=== PATIENT | male | born 1940 | race Caucasian/White ===

== ENCOUNTER 2018-09-04 21:02 | Emergency (ER) | payer OTHER ==
[~2018-09-04] VITALS: Ht 170.2 cm; Wt 108.9 kg
[2018-09-04] MEDS ORDERED: ALLOPURINOL100 MG PO (21:21)
[2018-09-04] MEDS ORDERED: HUMULIN R100 UNIT/1 INJ (21:21)
[2018-09-04] MEDS ORDERED: LANTUS100 UNITS/ SUB-Q (21:21)
[2018-09-04] MEDS ORDERED: NORVASC5 MG PO (21:22)
[2018-09-04] MEDS ORDERED: ZESTRIL5 MG PO (21:23)
[2018-09-04] MEDS ORDERED: COREG6.25 MG PO (21:23)
[2018-09-04] MEDS ORDERED: HYDROCHLOROTHIA25 MG PO (21:23)
[2018-09-04] MEDS ORDERED: LIPITOR20 MG PO (21:23)
[2018-09-04] MEDS ORDERED: K-TAB ER20 MEQ (21:24)
[2018-09-04] MEDS ORDERED: OMEPRAZOLE20 MG PO (21:24)
[2018-09-04] MEDS ORDERED: PC TAR177 ML TP (21:25)
[2018-09-04] MEDS ORDERED: LEVAQUIN500 MG PO (23:21)
--- NOTE | 2018-09-05 17:03 | EKG ---
[facility] [address] [facility] [place], [place] [address] Signed Normal sinus rhythm Right bundle branch block Abnormal ECG No previous ECGs available Confirmed by STEFANO BRITO DO ([id number]) on 09/05/2018 5:02:57 PM Electronically Signed By: STEFANO BRITO DO 09/05/18 1703 PATIENT NAME: LAVELL MEDINA Electrocardiogram DATE OF : 40 PHYSICIAN: STEFANO BRITO DO REPORT #: [id number] REPORT IS CONFIDENTIAL AND NOT TO BE RELEASED WITHOUT AUTHORIZATION
== END 2018-09-04 23:44 | disposition home or self-care (01) ==
LOC: ED 21:02
DX: J18.1 Lobar pneumonia, unspecified organism (principal); I10 Essential (primary) hypertension; E11.9 Type 2 diabetes mellitus without complications; E11.40 Type 2 diabetes mellitus with diabetic neuropathy, unspecified; K21.9 Gastro-esophageal reflux disease without esophagitis; Z87.891 Personal history of nicotine dependence; Z90.89 Acquired absence of other organs; Z88.0 Allergy status to penicillin; Z88.2 Allergy status to sulfonamides; Z79.4 Long term (current) use of insulin; Z79.899 Other long term (current) drug therapy
CPT/HCPCS: 36415; 71046; 80053; 83605; 85025; 93005; 93010; 99284-25

== ENCOUNTER 2022-05-28 09:51 | Emergency (ER) | payer OTHER ==
[~2022-05-28] VITALS: Ht 170.2 cm; Wt 108.1 kg
[~2022-05-28 09:51] MED LIST: ALLOPURINOL100 MG PO; COREG6.25 MG PO; HUMULIN R100 UNIT/1 INJ; HYDROCHLOROTHIA25 MG PO; K-TAB ER20 MEQ; LANTUS100 UNITS/ SUB-Q; LEVAQUIN500 MG PO; LIPITOR20 MG PO; NORVASC5 MG PO; OMEPRAZOLE20 MG PO; PC TAR177 ML TP; ZESTRIL5 MG PO
[2022-05-28] MEDS ORDERED: VENTOLIN HFA18 GM INH (11:08)
--- NOTE | 2022-05-30 06:52 | EKG ---
[facility] [address] [facility] [place] [address] Signed Sinus rhythm with occasional premature ventricular complexes Right bundle branch block T wave abnormality, consider inferior ischemia Abnormal ECG When compared with ECG of 04-SEP-2018 22:15, premature ventricular complexes are now present Confirmed by ANJANA MCMULLEN MD ([id number]) on 05/30/2022 6:52:31 AM Electronically Signed By: ANJANA MCMULLEN MD 05/30/22 0652 PATIENT NAME: LAVELL MEDINA Electrocardiogram DATE OF : 40 PHYSICIAN: ANJANA MCMULLEN MD REPORT #: [id number] REPORT IS CONFIDENTIAL AND NOT TO BE RELEASED WITHOUT AUTHORIZATION
== END 2022-05-28 12:15 | disposition home or self-care (01) ==
LOC: ED 09:51
DX: J10.1 Influenza due to other identified influenza virus with other respiratory manifestations (principal); R31.9 Hematuria, unspecified; I10 Essential (primary) hypertension; E11.42 Type 2 diabetes mellitus with diabetic polyneuropathy; M10.9 Gout, unspecified; K21.9 Gastro-esophageal reflux disease without esophagitis; Z87.891 Personal history of nicotine dependence; Z88.0 Allergy status to penicillin; Z88.2 Allergy status to sulfonamides; Z79.4 Long term (current) use of insulin; Z79.899 Other long term (current) drug therapy
CPT/HCPCS: 36415; 71045; 80053; 81001; 83605; 85025; 87040; 93005; 93010; 94640; 99285-25; J7030

== ENCOUNTER 2023-01-11 12:56 | Emergency (ER) | payer OTHER ==
[~2023-01-11] VITALS: Ht 170.2 cm; Wt 104.3 kg
--- OUTSIDE RECORDS SUMMARY | ~2023-01-11 | XMS | Continuity of Care Document ---
Demographics + + + | Address | [address] [place] [address] | | | [place] [address] | + + + | Preferred Language | Unknown | + + + | Marital Status | Never | + + + | Orthodox Affiliation | Unknown | + + + | Race | White | + + + | Ethnic Group | Unknown | + + + Author + + + | Author | [facility] | + + + | Organization | [facility] | + + + | Address | [address] | | | [place] [address] | + + + | Phone | | + + + Care Team Providers + + + + | Care Reservoir Engineering Manager Name | Role | Phone | + + + + Unavailable | Unavailable | + + + + Allergies and Intolerances + + + + + + | date | description | facility | reaction | severity | + + + + + + | (no date) | Penicillins | [facility] | (no reaction) | (no severity) | + + + + + + | (no date) | Sulfa | [facility] | (no reaction) | (no severity) | | | (Sulfonamide | | | | | | Antibiotics) | | | | + + + + + + Encounters No information. Functional Status No information. Immunizations No information. Medications No information. Problems + + + + | date | description | facility | + + + + | 2022-05-28 09:51 | TYPE 2 DIABETES MELLITUS | [facility] | | | WITH DIABETIC POLYNEUROPA | | + + + + | 2022-05-28 09:51 | Essential (primary) | [facility] | | | hypertension | | + + + + | 2022-05-28 09:51 | FLU DUE TO OTH IDENT | [facility] | | | INFLUENZA VIRUS W OTH RESP | | | | MA | | + + + + | 2022-05-28 09:51 | GASTRO-ESOPHAGEAL REFLUX | [facility] | | | DISEASE WITHOUT ESOPHAGIT | | + + + + | 2022-05-28 09:51 | GOUT, UNSPECIFIED | [facility] | + + + + | 2022-05-28 09:51 | HEMATURIA, UNSPECIFIED | [facility] | + + + + | 2022-05-28 09:51 | Dizziness and giddiness | [facility] | + + + + | 2022-05-28 09:51 | WOOD ROUTER HAND (CURRENT) USE OF | [facility] | | | INSULIN | | + + + + | 2022-05-28 09:51 | OTHER CORRECTION (CURRENT) | [facility] | | | DRUG THERAPY | | + + + + | 2022-05-28 09:51 | PERSONAL HISTORY OF | [facility] | | | NICOTINE DEPENDENCE | | + + + + | 2022-05-28 09:51 | ALLERGY STATUS TO | [facility] | | | PENICILLIN | | + + + + | 2022-05-28 09:51 | ALLERGY STATUS TO | [facility] | | | SULFONAMIDES STATUS | | + + + + | 2022-06-17 07:45 | 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, LEFT B | | + + + + | 2022-06-17 07:45 | SECONDARY MALIGNANT | [facility] | | | NEOPLASM OF UNSPECIFIED | | | | SITE | | + + + + | 2022-06-17 07:45 | PULMONARY FIBROSIS, | [facility] | | | UNSPECIFIED | | + + + + | 2022-06-17 07:45 | FATTY (CHANGE OF) LIVER, | [facility] | | | NOT ELSEWHERE CLASSIFIED | | + + + + | 2022-06-17 07:45 | SPLENOMEGALY, NOT | [facility] | | | ELSEWHERE CLASSIFIED | | + + + + | 2022-09-01 09:30 | Malignant neoplasm of | [facility] | | | prostate | | + + + + | 2022-09-01 09:30 | SECONDARY MALIGNANT | [facility] | | | NEOPLASM OF UNSPECIF | | + + + + | 2022-12-14 12:50 | 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, LEFT BRONCHUS | | | | OR LUNG | | + + + + | 2022-12-14 12:50 | SECONDARY MALIGNANT | [facility] | | | NEOPLASM OF UNSPECIF | | + + + + | 2022-12-14 12:50 | FATTY (CHANGE OF) LIVER, | [facility] | | | NOT ELSEWHERE CLASSIFIED | | + + + + | 2022-12-14 12:50 | 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, NOT ELSEWHERE | | | | CLAS | | + + + + | 2022-12-14 13:00 | SECONDARY MALIGNANT | [facility] | | | NEOPLASM OF UNSPECIF | | + + + + | 2023-01-07 12:56 | TYPE 2 DIABETES MELLITUS | [facility] | | | WITH DIABETIC POLYNEUROPA | | + + + + | 2023-01-07 12:56 | Essential (primary) | [facility] | | | hypertension | | + + + + | 2023-01-07 12:56 | GASTRO-ESOPHAGEAL REFLUX | [facility] | | | DISEASE WITHOUT ESOPHAGIT | | + + + + | 2023-01-07 12:56 | UNSPECIFIED ABDOMINAL PAIN | [facility] | | | | | + + + + | 2023-01-07 12:56 | HEMATURIA, UNSPECIFIED | [facility] | + + + + | 2023-01-07 12:56 | RETENTION OF URINE, | [facility] | | | UNSPECIFIED | | + + + + | 2023-01-07 12:56 | WOOD ROUTER HAND (CURRENT) USE OF | [facility] | | | INSULIN | | + + + + | 2023-01-07 12:56 | OTHER WOOD ROUTER HAND (CURRENT) | [facility] | | | DRUG THERAPY | | + + + + | 2023-01-07 12:56 | PERSONAL HISTORY OF | [facility] | | | NICOTINE DEPENDENCE | | + + + + | 2023-01-07 12:56 | ALLERGY STATUS TO | [facility] | | | PENICILLIN | | + + + + | 2023-01-07 12:56 | ALLERGY STATUS TO | [facility] | | | SULFONAMIDES STATUS | | + + + + Procedures No information. Results/Labs No information. Social History No information. Vital Signs No information."
--- OUTSIDE RECORDS SUMMARY | ~2023-01-11 | XMS | Continuity of Care Document ---
Demographics + + + | Address | [address] [place] [address] | | | [place] [address] | + + + | Preferred Language | Unknown | + + + | Marital Status | Never | + + + | Adventism Affiliation | Unknown | + + + | Race | White | + + + | Ethnic Group | Unknown | + + + Author + + + | Author | [facility] | + + + | Organization | [facility] | + + + | Address | [address] | | | [place] [address] | + + + | Phone | | + + + Care Team Providers + + + + | Care Outsole Flexer Name | Role | Phone | + [...] + + + | 2022-05-28 09:51 | CONVEYOR TENDER CONCRETE MIXING PLANT (CURRENT) USE OF | [facility] | | | INSULIN | | + + + + | 2022-05-28 09:51 | OTHER PRISON (CURRENT) | [facility] | | | DRUG [...] + + + | 2023-01-07 12:56 | CONVEYOR TENDER CONCRETE MIXING PLANT (CURRENT) USE OF | [facility] | | | INSULIN | | + + + + | 2023-01-07 12:56 | OTHER CONVEYOR TENDER CONCRETE MIXING PLANT (CURRENT) | [facility] | | | DRUG [...]
[~2023-01-11 12:56] MED LIST changes: -HUMULIN R100 UNIT/1 INJ; -K-TAB ER20 MEQ; -LIPITOR20 MG PO; +LIPITOR40 MG PO; +NOVOLIN R100 UNIT/1 INJ; +POTASSIUM CITR10 ME1 PO; +PROSCAR5 MG PO; +VENTOLIN HFA18 GM INH; +ZESTRIL20 MG PO; -ZESTRIL5 MG PO
--- OUTSIDE RECORDS SUMMARY | 2023-01-11 13:02 | XMS ---
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 Carlotta has no Care Guidelines for this patient. Justin VISIT COUNT (12 MO.) [address] [facility] TOTAL 5 NOTE: Visits indicate total known visits. ED/C VISIT TRACKING (12 MO.) 01/11/2023 12:57 [facility] [place] TYPE: Emergency COMPLAINT: - BLOOD IN CATHETER 01/10/2023 15:15 [facility] [place] TYPE: Emergency COMPLAINT: - WEAKNESS 01/09/2023 13:33 [facility] [place] TYPE: Emergency COMPLAINT: - URIN IN BLOOD 01/07/2023 12:56 [facility] [place] TYPE: Emergency COMPLAINT: - POSS UTI DIAGNOSES: - Allergy status to penicillin - Allergy status to sulfonamides - Essential (primary) hypertension - Gastro-esophageal reflux disease without esophagitis - Hematuria, unspecified - intermediate (current) use of insulin - Other termite control service representative (current) drug therapy - Personal history of nicotine dependence - Retention of urine, unspecified - Type 2 diabetes mellitus with diabetic polyneuropathy - Unspecified abdominal pain 05/28/2022 09:51 [facility] [place] TYPE: Emergency COMPLAINT: - SOB DIAGNOSES: - Allergy status to penicillin - Allergy status to sulfonamides - Dizziness and giddiness - Essential (primary) hypertension - Gastro-esophageal reflux disease without esophagitis - Gout, unspecified - Hematuria, unspecified - Influenza due to other identified influenza virus with other respiratory manifestations - intermediate (current) use of insulin - Other retirement (current) drug therapy - Personal history of nicotine dependence - Type 2 diabetes mellitus with diabetic polyneuropathy INPATIENT VISIT TRACKING (12 MO.) No inpatient visits to display in this time frame [email or web address]
[2023-01-11 14:36] VITALS: BP 154/88
[2023-01-12] MEDS ORDERED: SEMGLEE (Y100 UNIT/1 SUB-Q (17:10)
[2023-01-12] MEDS ORDERED: VENTOLIN HFA18 GM (17:27)
[2023-01-12] MEDS ORDERED: NOVOLIN R100 UNIT/1 SUB-Q (17:27)
[2023-01-12] MEDS ORDERED: FENOFIBRATE145 MG PO (18:19)
[2023-01-12] MEDS ORDERED: JARDIANCE10 MG PO (18:21)
[2023-01-12] MEDS ORDERED: NITROFURANTOIN100 MG PO (18:23)
[2023-01-12] MEDS ORDERED: CLOTRIMAZOLE45 G1 TOP (18:24)
[2023-01-12] MEDS ORDERED: LOPERAMIDE2 MG PO (18:27)
[2023-01-12] MEDS ORDERED: THERA-GEL251 ML TOP (18:28)
== END 2023-01-11 14:38 | disposition home or self-care (01) ==
LOC: ED 12:56
DX: R31.9 Hematuria, unspecified (principal); M10.9 Gout, unspecified; I10 Essential (primary) hypertension; E11.9 Type 2 diabetes mellitus without complications; K21.9 Gastro-esophageal reflux disease without esophagitis; Z87.891 Personal history of nicotine dependence; Z88.0 Allergy status to penicillin; Z88.2 Allergy status to sulfonamides; Z79.899 Other long term (current) drug therapy; Z79.4 Long term (current) use of insulin
CPT/HCPCS: 99283

== ENCOUNTER 2023-01-12 08:57 | Day surgery (SDC) | payer OTHER ==
[~2023-01-12] VITALS: Ht 170.2 cm; Wt 106.3 kg
[2023-01-12] VITALS (7 sets, daily range): BP systolic 122–148; BP diastolic 69–94
--- NOTE | 2023-01-12 13:04 | NUR ---
01/12/23 1304 Nan Carr 1245 PT ARRIVED IN PACU SLEEPY WITH TRANSPORT GUARD PRESENT. COSTA WITH CBI RUNNING. URINE LITE YELLOW IN COLOR. 1250 BLOOD SUGAR 140. OXYGEN SATS DROPPED TO 88% ON RA. ENCOURAGED COUGH, DEEP BREATHING WITH NO CHANGE. O2 @ 4L VIA NC PLACED. SATS 95%. 1300 DECREASED O2 TO 2L VIA NC WITH SATS 94%. AT BEDSIDE. ALL QUESTIONS ANSWERED.
--- NOTE | 2023-01-12 14:00 | NUR ---
Spoke with Raheel. He is accompanied by two correctional officers in his room. Pt states he is wc bound and is not able to walk. He has a catheter in place needing clots evacuated and possible cautery. Plan is for pt to return to [facility] to their infirmary when medically cleared. No other needs.
--- NOTE | 2023-01-12 15:23 | NUR ---
CBI CLAMPED ATT. HAS HAD CLEAR URINE SINCE ARRIVAL ON UNIT. 75ML U/O. DENIES PAIN ATT.
--- NOTE | 2023-01-12 16:02 | EKG ---
[facility] [address] [facility] [place] [address] Signed Normal sinus rhythm Right bundle branch block Inferior infarct , age undetermined Abnormal ECG When compared with ECG of 28-MAY-2022 10:43, premature ventricular complexes are no longer present Inferior infarct is now present Nonspecific T wave abnormality no longer evident in Anterior leads Confirmed by JIM TABOR MD ([id number]) on 01/12/2023 4:02:40 PM Electronically Signed By: JIM TABOR 01/12/23 1602 PATIENT NAME: LAVELL MEDINA Electrocardiogram DATE OF : 40 PHYSICIAN: JIM TABOR REPORT #: [id number] REPORT IS CONFIDENTIAL AND NOT TO BE RELEASED WITHOUT AUTHORIZATION
[2023-01-12] MEDS ORDERED: SEMGLEE (Y100 UNIT/1 SUB-Q (17:10)
[2023-01-12] MEDS ORDERED: VENTOLIN HFA18 GM (17:27)
[2023-01-12] MEDS ORDERED: NOVOLIN R100 UNIT/1 SUB-Q (17:27)
[2023-01-12] MEDS ORDERED: FENOFIBRATE145 MG PO (18:19)
[2023-01-12] MEDS ORDERED: JARDIANCE10 MG PO (18:21)
[2023-01-12] MEDS ORDERED: NITROFURANTOIN100 MG PO (18:23)
[2023-01-12] MEDS ORDERED: CLOTRIMAZOLE45 G1 TOP (18:24)
[2023-01-12] MEDS ORDERED: LOPERAMIDE2 MG PO (18:27)
[2023-01-12] MEDS ORDERED: THERA-GEL251 ML TOP (18:28)
--- NOTE | 2023-01-12 18:30 | NUR ---
medications reconciled
--- NOTE | 2023-01-12 19:20 | NUR ---
SHIFT REPORT RECEIVED FROM DAYSHIFT RN NASIR AT BEDSIDE. pt AWAKE AND WATCHING TV IN BED, WATCHING TV. ON RA, RR EVEN AND UNLABORED. COSTA DRAIN PATENT, URINE LIGHT YELLOW IN COLOR. CBI REMAINS CLAMPED. GUARDS X2 IN ROOM. [facility] RESTRAINTS IN PLACE. NO NEEDS OR CONCERNS VERBALIZED.
--- NOTE | 2023-01-12 22:02 | NUR ---
assessment complete and medication administration complete, pt denies pain and nausea. bt active. iv site wnl, iv abx infusing as directed. ruffin remains patent, cbi remains clamped. output light yellow colored, catheter care completed. sugar free snack provided, no further needs. call light in reach.
--- NOTE | 2023-01-12 22:45 | NUR ---
PT SL. ANTIBIOTIC COMPLETE.
--- NOTE | 2023-01-12 22:56 | NUR ---
SCHEDULED PEPCID GIVEN-SEE EMAR. IV SITE WNL, FLUSHES EASILY. NO ADDITIONAL NEEDS OR CONCERNS VERBALIZED BY pt. [facility] GUARDS X2 IN ROOM AND [facility] RESTRAINTS/SHAKLES IN PLACE.
--- NOTE | 2023-01-13 00:28 | NUR ---
pt RESTING QUIETLY IN BED, ON LEFT SIDE. RR EVEN AND UNLABORED, NO DISTRESS NOTED. [facility] RESTRAINTS REMAINS IN PLACE FOR SAFETY AND GUARD IN ROOM. WILL CONTINUE TO MONITOR.
[2023-01-13 02:06] VITALS: BP 113/51
--- NOTE | 2023-01-13 02:16 | NUR ---
vss, pt awoke easily to voice. cpox remains in place, pt on ra. rr even and unlabored. no distress noted. ruffin remains patent and to gravity, output light yellow in color. no clots or blood noted. pt denies pain and nausea. call light in reach. no acute changes to assessment. will continue to monitor.
--- NOTE | 2023-01-13 04:47 | NUR ---
pt resting in bed, on ra. rr even and unlabored. cpox shows spo2 mid 90's, hr wnl. no distress or sign of pain/discomfort noted. guard x1 remains in room. will monitor for changes.
[2023-01-13 06:53] VITALS: BP 122/72
--- NOTE | 2023-01-13 06:57 | NUR ---
vss and i&o's complete. ruffin catheter remains patent with output light yellow in color. no blood or blood clots noted ruffin tubing, scant blood noted around ruffin insertion site. ruffin plug to where cbi tubing was infusing. russ/catheter care completed. sugar free snack also provided, call light in reach. guard x1 in room and [facility] shackles remains in place.
--- NOTE | 2023-01-13 07:05 | NUR ---
REPORT RECEIVED FROM DARYL RODAS. DARYL RODAS PROVIDED PT WITH JELLO AND PUDDING A SNACK. PT SITTING UP IN BED WATCHING TV. PT DENIES ANY NEEDS AT THIS TIME. CALL LIGHT IN REACH. ONE GUARD IN ROOM.
--- NOTE | 2023-01-13 08:12 | NUR ---
IN TO ADMINISTER MEDICAITONS, SEE MAR. PT SITTING UP IN BED AND TAKES PO MEDICATION WITH NO ISSUES. ASSESSMENT COMPLETE. PT DENIES PAIN AT THIS TIME. LUNG SOUNDS CLEAR. BOWEL TONES ACTIVE. COSTA CATH CARE PROVIDED. IV FLUSHES WNL. PT DENIES ANY OTHER NEEDS AT THIS TIME. CALL LIGHT IN REACH. ONE GUARD IN ROOM.
--- NOTE | 2023-01-13 09:00 | NUR ---
Called and spoke with the infirmary at [facility]. They can take this pt back today. Faxed H&P, RX, pink sheet. Placed all in a manilla envelope and gave to Kenzie, charge nurse.
[2023-01-13] MEDS ORDERED: LEVOFLOXACIN500 MG PO (09:36)
[2023-01-13] MEDS ORDERED: OXYCODONE HCL5 MG PO (09:36)
[2023-01-13 09:44] VITALS: BP 108/51
--- NOTE | 2023-01-13 10:19 | NUR ---
IN ROOM TO GO OVER DC TEACHING. VERBAL TEACHING PROVIDED FOR PT. DC PACKET HANDED TO GUARD. PT VERBALIZES UNDERSTANDING. IV REMOVED WNL. STAT LOCK PLACED. VITALS COMPLETE. PT WHEELED OUT IN WHEELCHAIR WITH GUARD. PT DENIES ANY QUESTIONS.
[2023-01-13 10:40] VITALS: BP 129/66
--- NOTE | 2023-01-13 11:02 | NUR ---
THIS RN CALLED AND GAVE REPORT TO NURSE NO AT [facility]. QUESTIONS ANSWERED.
--- NOTE | 2023-01-13 11:51 | NUR ---
Received a call from Chayito at [facility]. Updated to pts procedure and he remained SDS, but was dcd to [facility] this am. She denies needing records.
--- NOTE | 2023-01-13 17:50 | OR ---
[facility] [address] [place], [place] [address] Signed DATE OF OPERATION: 01/12/2023 SURGEON: Kb Whitt MD PREOPERATIVE DIAGNOSES: 1. Sudden onset gross hematuria with associated clot urinary retention. 2. History of prostate cancer, status post radiation therapy. POSTOPERATIVE DIAGNOSES: 1. Sudden onset gross hematuria with associated clot urinary retention. 2. History of prostate cancer, status post radiation therapy. PROCEDURES: 1. Diagnostic cystoscopy with blood clot evacuation. 2. Transurethral resection of the prostate. ANESTHESIA: General. ESTIMATED BLOOD LOSS: 25 mL. COMPLICATIONS: None. SPECIMENS: Prostate chips sent to pathology for evaluation. DRAINS: A 22-Romanian three-way Turner catheter, connected to continuous bladder irrigation. INDICATIONS FOR PROCEDURE: Lavell is a very pleasant 82-year-old gentleman who I met earlier this year, who has been presenting to the emergency department multiple times in recent days for gross hematuria with a clot retention. Back in June of this year, he did experience a painless gross hematuria and he subsequently underwent diagnostic cystoscopy which revealed no evidence of any bladder masses or lesions. It was determined that the blood was coming from his friable prostatic urethra. 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 A few days ago, the patient began to experience difficulty voiding and was seen in the emergency department around five days ago, where he Electronically Signed By: KB WHITT MD 01/13/23 1730 PATIENT NAME: LAVELL MEDINA OPERATIVE REPORT DATE OF : 40 REPORT #: [id number] PHYSICIAN: KB WHITT MD PCP: SAIDA BRADLEY REPORT IS CONFIDENTIAL AND NOT TO BE RELEASED WITHOUT AUTHORIZATION [facility] [address] [place], [place] [address] Signed underwent placement of a Turner catheter. It was noted at that time that there were multiple blood clots within the patient's urine once the Turner catheter was placed. Since that time, he has been in the emergency department multiple times with his indwelling Turner catheter clotted off with blood. The patient states that nursing staff was unable to place a catheter greater than 18-Romanian, so he has had an indwelling 18-Romanian catheter in place for about a week or so. He presents to me this morning and his 18-Romanian catheter is currently not draining. My nurse attempted to irrigate the catheter, but that was unsuccessful. The catheter was exchanged and it was still difficult to irrigate, so he has agreed to undergo cystoscopy with blood clot evacuation and possible TURP today under anesthesia. OPERATIVE FINDINGS: 1. On cystoscopy, there was no evidence of any suspicious masses, lesions, or stones. Bilateral ureteral orifices are in their normal anatomic location. There are a couple of moderately sized blood clots present within the bladder that I am able to irrigate rather easily using a Michael syringe. 2. Ureteroscopy reveals another very large blood clot within the prostatic urethra that I did extract manually using a grasper. The bulbar urethra appears irritated and it appears as though there may have been a prior urethral stricture there that has since been dilated with the Turner catheter. There is no evidence of any urethral false passage. 3. The patient's prostate was resected transurethrally using a 24-Romanian loop with bipolar electrocautery. The very small median lobe was resected followed by the left and right lateral lobe of the prostate. The length of the prostate was approximately 4 cm from bladder neck to verumontanum. At the end of the procedure, a 22-Romanian three-way Turner catheter was inserted and connected to continuous bladder irrigation. DESCRIPTION OF PROCEDURE: After informed consent was obtained, the patient was taken back to the operating room. [facility] table, where general anesthesia was induced. He was placed in the dorsal lithotomy position and his indwelling Turner catheter was removed. His genitalia were then prepped and draped in a standard sterile fashion. His urethral meatus and fossa navicularis was then dilated using Salome sounds from 18-Romanian to 26-Romanian without difficulty. I then inserted a 22.5-Romanian sheath with a cystoscope with a 30-degree lens into the patient's bladder and a diagnostic cystoscopy was performed. Please see above findings. I evacuated the existing blood clots within the bladder using a Michael syringe without difficulty. I then removed the regular cystoscope and past a 26-Romanian sheath through the patient's urethra into the bladder using a visual obturator. This visual obturator was then switched out for a resectoscope with a bipolar loop. I then transurethrally resected the patient's median lobe down to the bladder neck and then resected the left and right lateral lobes down to the level of the verumontanum. All the while, I had good Electronically Signed By: KB WHITT MD 01/13/23 4739 PATIENT NAME: LAVELL MEDINA OPERATIVE REPORT DATE OF : 40 REPORT #: [id number] PHYSICIAN: KB WIHTT MD PCP: SAIDA BRADLEY REPORT IS CONFIDENTIAL AND NOT TO BE RELEASED WITHOUT AUTHORIZATION [facility] [address] [place], [place] [address] Signed visualization of the bilateral ureteral orifices, which were not located near the bladder neck. Resection again went down to the level of the verumontanum and did not go distal to this landmark for fear of iatrogenic damage to the external sphincter. Throughout the procedure, I did irrigate the patient's bladder of prostate chips using a Michael syringe. The bipolar loop was used to incise the prostate and for cautery and to achieve hemostasis as needed. Toward the end of procedure, I switched from the a loop to a bipolar button for additional hemostasis. Once I was satisfied that a channel had been created and hemostasis had been achieved, I removed the resectoscope and inserted a 22-Romanian three-way Turner catheter into the patient's bladder over a Sensor wire. The Sensor wire was pulled and 30 mL of water was instilled into the catheter balloon. The catheter was manually irrigated to confirm placement and it did irrigate normally. The catheter was then connected to continuous bladder irrigation. The procedure was then terminated. The patient tolerated the procedure well without any complication. He will now be transferred to the post anesthesia care unit in stable condition. DISPOSITION: The patient will remain in my care overnight on continuous bladder irrigation, which will be weaned slowly to keep his urine clear to light pink in color. He will receive one dose of IV Rocephin in the morning prior to his discharge. He will be discharged to [facility] tomorrow morning with his Turner catheter to gravity drainage. He was given a prescription for oxycodone 5 mg, one tab p.o. q.6 hours p.r.n. pain, dispense #20, along with Levaquin 500 mg p.o. daily for a total of 10 days. He will be scheduled to return to clinic this to undergo a voiding trial and he will be scheduled to see me in the clinic with a PVR in six weeks. MD SHAREE Willis/MODL /[id number] Copies: ~ Electronically Signed By: KB WHITT MD 01/13/23 1750 PATIENT NAME: LAVELL MEDINA OPERATIVE REPORT DATE OF : 40 REPORT #: [id number] PHYSICIAN: KB WHITT MD PCP: SAIDA BRADLEY REPORT IS CONFIDENTIAL AND NOT TO BE RELEASED WITHOUT AUTHORIZATION
--- NOTE | 2023-01-15 18:00 | PATH ---
[facility] [address] [facility] [place], [place] [address] Signed SPECIMEN(S): A PROSTATE CHIPS (TUR) SPECIMEN SOURCE: A. PROSTATE CHIPS (TUR) CLINICAL HISTORY: Evaluation of clots. Caut of bleeding. Gross hematuria. FINAL PATHOLOGIC DIAGNOSIS: Prostate chips, TUR: - Prostatic nodular stromal hyperplasia. - Negative for malignancy. NA:emh:C2NR MICROSCOPIC EXAMINATION: Histologic sections of all submitted blocks are examined by light microscopy. These findings, together with the gross examination, support the pathologic diagnosis. GROSS DESCRIPTION: The specimen, labeled and designated "Wehr, prostate chips," is received in formalin and consists of pink-domingeuz, rubbery tissue fragments mixed with coagulated blood. Coagulated blood is from the prostate tissue. The prostate tissue fragments measure 7.5 x 5.2 x 0.8 cm. Specimen weight 11 g. Entirely submitted in (A1-A8). Coagulated blood is preserved within the container. JS (under the direct supervision of a pathologist) The Gross Description was prepared using a voice recognition system. The report was reviewed for accuracy; however, sound-alike word errors, addition and/or deletions may occur. If there is any question about this report, please contact Client Services. PERFORMING LABORATORY: Technical component was performed by [facility], [address] [place] [id number] (CLIA# [id number]). Professional interpretation was performed by [facility], [address] [place] [address] (CLIA# [id number]). Diagnostician: Abiola Rowley MD Pathologist Electronically Signed 01/15/2023 PATIENT NAME: LAVELL MEDINA PATHOLOGY DATE OF : 40 REPORT #: [id number] PHYSICIAN: MICHAELA PATHOLOGY PCP: SAIDA BRADLEY REPORT IS CONFIDENTIAL AND NOT TO BE RELEASED WITHOUT AUTHORIZATION [address] [place], [place] [address] Signed Copies: ~ PATIENT NAME: LAVELL MEDINA PATHOLOGY DATE OF : 40 REPORT #: [id number] PHYSICIAN: MICHAELA PATHOLOGY PCP: SAIDA BRADLEY REPORT IS CONFIDENTIAL AND NOT TO BE RELEASED WITHOUT AUTHORIZATION
== END 2023-01-13 10:49 | disposition home or self-care (01) ==
LOC: DS 08:57 → MS 08:57 → DS 08:58 → MS 13:25 → DS 01-13 10:49
PROVIDERS: ATTEND Urology
PROC: 0VT08ZZ Resection of Prostate, Via Natural or Artificial Opening Endoscopic (ICD-10-PCS; principal; 2023-01-12 10:30)
DX: R31.0 Gross hematuria (principal); E11.9 Type 2 diabetes mellitus without complications; I10 Essential (primary) hypertension; Z72.0 Tobacco use; Z88.2 Allergy status to sulfonamides; Z88.0 Allergy status to penicillin; R33.8 Other retention of urine; Z85.46 Personal history of malignant neoplasm of prostate
CPT/HCPCS: 00914; 36415; 85025; 93005; 93010; 94762; C1769; J0131; J0690; J0696; J1815; J2405; J2704; J3010; J7121

== ENCOUNTER 2024-02-14 05:48 | Day surgery (SDC) | payer OTHER ==
[~2024-02-14] VITALS: Ht 175.3 cm; Wt 92.5 kg
[~2024-02-14 05:48] MED LIST changes: +CLOTRIMAZOLE45 G1 TOP; +FENOFIBRATE145 MG PO; +JARDIANCE10 MG PO; +LACTATED RINGER'S 1,000 ML IV SCH; +LEVOFLOXACIN500 MG PO; +LOPERAMIDE2 MG PO; +NITROFURANTOIN100 MG PO; +NOVOLIN R100 UNIT/1 SUB-Q; +OXYCODONE HCL5 MG PO; +SEMGLEE (Y100 UNIT/1 SUB-Q; +THERA-GEL251 ML TOP; +VENTOLIN HFA18 GM; +ZESTRIL10 MG PO; -ZESTRIL20 MG PO
[2024-02-14 06:07] VITALS: BP 131/75
[2024-02-14] MEDS ORDERED: VITAMIN B-121000 MC3 PO (06:26)
[2024-02-14] MEDS ORDERED: FERROUS GLUCON324 M1 PO (06:27)
[2024-02-14] MEDS ORDERED: VESICARE5 MG PO (06:28)
[2024-02-14] MEDS ORDERED: DETROL LA4 MG PO (06:36)
[2024-02-14] MEDS ORDERED: IBLOOD GLUCOSE TEST STRIP 1 EA TEST VI PRN (07:00)
[2024-02-14] MEDS ORDERED: LIDOCAINE HCL 1% 5 ML SDV INJ ONE (07:00)
[2024-02-14] MEDS ORDERED: CEFAZOLIN SODIUM 2 GM/20 ML SYR IV SCH (07:00)
[2024-02-14] MEDS ORDERED: fentaNYL citrate 100 MCG/2 ML VIAL ONE (07:09)
[2024-02-14] MEDS ORDERED: KETOROLAC TROMETHAMINE 30 MG/ML VIAL ONE (07:09)
[2024-02-14] MEDS ORDERED: ondansetron HCL 4 MG/2 ML VIAL ONE (07:09)
[2024-02-14] MEDS ORDERED: propofoL 200 MG/20 ML VIAL ONE (07:09)
[2024-02-14] MEDS ORDERED: LIDOCAINE HCL 2% 5 ML SDV ONE (07:09)
[2024-02-14] MEDS ORDERED: GLYCOPYRROLATE 1 MG/5 ML MDV ONE (07:13)
[2024-02-14] MEDS ORDERED: mitoMYcin 40 MG/20 ML VIAL BLADIN ONE (07:30)
--- NOTE | 2024-02-14 07:39 | NUR ---
PT NOT AVAILABLE FOR VISIT. PROVIDED PRAYER.
[2024-02-14] MEDS ORDERED: PHENAZOPYRIDINE HCL 95 MG TAB PO PRN ×2 (07:45)
[2024-02-14] MEDS ORDERED: OXYCODONE/APAP 5/325 TAB PO PRN (07:45)
[2024-02-14] MEDS ORDERED: ondansetron HCL 4 MG/2 ML VIAL IV PRN (07:45)
[2024-02-14] MEDS ORDERED: TRAMADOL HCL 50 MG TAB PO PRN (07:45)
[2024-02-14] MEDS ORDERED: MORPHINE SULFATE 4 MG/ML VIAL IV PRN (07:45)
[2024-02-14] MEDS ORDERED: ePHEDrine sulfate 50 MG/ML AMP ONE (08:07)
[2024-02-14 10:10] VITALS: BP 139/71
[2024-02-14 11:10] VITALS: BP 140/78
--- NOTE | 2024-02-14 11:21 | NUR ---
02/14/24 1121 Yanet Barba Nash 0920- PT PRESENTS TO PACU, SEMI GARDNER POSITION. REACTIVE TO STIMULUS, PT HAS TREMORS TO ALL EXTREMITIES INTERMITTENTLY AT BASELINE. PT KEEPS EYES CLOSED AND DOES NOT RESPOND VERBALLY. LR INFUSING TO RH IV. BREATHING EVEN AND NON LABORED, O2 AT 10 L PER MASK. ABD SOFT, NON DISTENDED. COSTA CATHETER IN PLACE AND CLAMPED. ALL MONITORS IN PLACE. 0925- PT MOVING ARM WITH BP CUFF, UNABLE TO OBTAIN ACCURATE BP, 1ST AND 2ND 123/104, 141/125. 0927- REPOSITIONED CUFF AND INSTRUCTED PT TO HOLD ARM STILL, ASSISTED PT WITH HOLDING ARM STILL. REPEAT BP 120/63. PT BACK TO MOVING AROUND, NO VERBAL RESPONSE. ATTEMPTED TO REORIENT PT TO PLACE AND TIME. ENCOURAGE REST. CBG 207. PT MOVED TO ROOM AIR AT THIS TIME. 0930- PT REPOSITIONED TO RIGHT SIDE FOR MYTOMYCIN, DELAYED DUE TO PT MOVING ARMS AND TRYING TO OBTAIN ACCURATE VITAL SIGNS. 0938- PT SATS DROP TO 88% WHILE RESTING, FOLLOWS COMMANDS TO DEEP BREATH. SATS REMAIN UNCHANGED, 2L O2 PLACED PER NC. 0947- PT ROLLED TO LEFT SIDE FOR MYTOMYCIN. PT DENIES PAIN OR NAUSEA. NO SIGNS OF DISTRESS. LR CONTINUES TO HANG AT TKO. 1006- PT IS ABLE TO WAKE AND HELP SOME TO GET TO A PRONE POSITION. CONTINUES TO DENY PAIN OR NAUSEA. PT REPORTS HE IS COMFORTABLE. 1010- PT TAKEN TO DAY SURGERY, DROWSY BUT WAKES AND ANSWERS QUESTIONS. PT IS PRONE. IV SALINE LOCKED IN FOR POSITIONING. O2 REMAINS IN PLACE AT 2L PER NC. COSTA CATHETER IN PLACE AND CLAMPED. BLADDER DRAIN TIME OF 1021 GIVEN TO POOL BRITO IN BEDSIDE REPORT. CARE OF PT TUREND OVER AT THIS TIME.
[2024-02-14 11:32] VITALS: BP 112/49
--- NOTE | 2024-02-14 18:11 | NUR ---
LE 1010-PT ARRIVED BACK TO VIA STRETCHER IN PRONE POSITION, RESTING WITH EYES CLOSED, BUT AROUSABLE WITH TACTILE STIMULI. PT ON 2L VIA NC. REPORT RECEIVED FROM [employer]ELOPMENT OFFICER. PT ON LAST TURN AND REPORT RECEIVED THAT MITOMYCIN TO BE DRAINED AT 1021. PT DENIES PAIN AND NAUSEA WHEN ASKED. NOTED CATH INPLACE WITH PLUG. NO DRAIANGE SEEN FROM [facility] AROUND CATH. VS TAKEN. PT REMAINS WITH 2 [facility] SKILLED NURSING GUARDS IN ROOM AT PTS BEDSIDE. IV SITE IS SL'D UPON RETURN TO . CALL LIGHT WITHIN PT REACH. BED INLOW POSITION WITH WHEELS LOCKED AND BILAT SIDERAILS IN PLACE FOR SAFETY. PT DENIES ANY NEEDS AT THIS TIME. ALL QUESTIONS ANSWERED. 1020-SPOKE WITH DR. WHITT REGARDING PTS ABILITY TO MEET DISCHARGE CRITERIA WITH URINE OUTPUT. PT IS INCONTINENT OF URINE AND HAS NO ABLITY TO FEEL WHEN HE IS VOIDING. DR. 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 1021-INTO PTS ROOM TO DRAIN MITOMYSIN. PT ASSISTED FROM PRONE TO SUPINE POSITION WITH 2 RN ASSIST. CATH TUBING CLAMPED, DRAIANGE SYSTEM ATTACHED, AND CATH TUBING UNCLAMPED. MITOMYCIN DRAINED AND DISPOSED OF PER POLICY. CATH BALLOON DEFLATED. APPROX 8ML OF FLUID REMOVED FROM CATH BALLOON. CATH REMOVED. TIP INTACT. PT TOLERATED WELL AND CONT TO DENY PAIN OR DISCOMFORT WHEN ASKED. NEW UG AND CHUX PAD PLACED. PT ASSISTED WITH REPOSITIONING IN BED WITH 2 RN ASSIST. 2 [facility] GUARDS REMAIN IN ROOM WITH PT AT ALL TIMES. PT PROVIDED WITH ICE WATER, CRACKERS, AND APPLESAUCE. CALL LIGHT WITHIN PT REACH. BED IN LOW POSITION WITH WHEELS LOCKED AND BILAT SIDERAILS INPLACE FOR SAFETY. ALL QUESTIONS ANSWERED. 1110-INTO PTS ROOM FOR ROUTINE REASSESSMENT. 2 [facility] GUARDS REMAIN IN PTS ROOM AT BEDSIDE. PT HAS EATEN HIS APPLESAUCE AND BEEN ABLE TO TOLERATE PO FLUIDS. PT DENIES NAUSEA WHEN ASKED. PT CONT TO DENY ANY PAIN OR DISCOMFRT. NOTED SMALL AMT OF URINE PRESENT IN UG. RED TINGED IN COLOR. VS TAKEN. IV SITE ASSESSED. DISCHARGE INSTRUCTIONS REVIEWED WITH PT. RX'S GIVEN TO [facility] GUARDS IN MEDICAL ENVELOPE. ALL DISCHARGE INSTRUCTIONS ALSO GIVEN TO GUARDS WELL HOME HANDOUT FOR SAFETY AND HANDLING OF URINE POST PROCEDURE. GUARDS PLACED IN MEDICAL ENVELOPE FOR [facility] STAFF. 1120-2 RN ASSIST REQUIRED FOR REDRESSING PT AND CHANGING PTS UG PRIOR TO DISCAHRGE. PT REDRESSED IN INMATE UNIFORM. GUARDS REMAIN IN PTS ROOM AT BEDSIDE. PT CONT TO DENY PAIN OR NAUSEA WHEN ASKED. GUARDS APPLIED SHACKLES TO PT FOR TRANSPORT. 1125-IV REMOVED FROM R HAND. TIP OBSERVED TO BE INTACT. PRESSURE DRSG APPLIED WITH GAUZE AND COBAN. [facility] CALLED FOR NON-EMERGENT AMBULANCE TRASNPORT BACK TO [facility]. GUARDS REMAIN IN ROOM WITH PT. 1135-PT DISCHARGED FROM DS. GUARDS REMAIN IN ROOM WITH PT UNTIL TRASNPORTATION ARRIVES. ALL PTS QUESTIONS ANSWERED. PT DENIES ANY FURTHER NEEDS. ALL RX'S AND PAPERWORK IN MEDICAL ENVELOPE IN [facility] GUARDS POCESSION. [id number] TRANSPORT ARRIVED AND PT LEFT DS VIA STRETCHER BACK TO [facility] VIA AMBULANCE. PT ACCOMPANIED BY 2 GUARDS AND IS SHACKLED. PT AND GUARDS LEFT WITH ALL PERSONAL BELONGINGS.
--- NOTE | 2024-02-14 21:20 | EKG ---
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
--- NOTE | 2024-02-14 21:22 | EKG ---
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
--- NOTE | 2024-02-16 10:41 | PATH ---
[facility] [address] [facility] [place], [place] [address] Signed SPECIMEN(S): A PROSTATE CHIPS, PAPILLARY MASS SPECIMEN SOURCE: A. PROSTATE CHIPS, PAPILLARY MASS CLINICAL HISTORY: Gross hematuria FINAL PATHOLOGIC DIAGNOSIS: Prostate, transurethral resection: - Benign prostatic tissue with nephrogenic metaplasia/adenoma, glandular and stromal hyperplasia, and chronic inflammation BRP MICROSCOPIC EXAMINATION: Histologic sections of all submitted blocks are examined by light microscopy. These findings, together with the gross examination, support the pathologic diagnosis. GROSS DESCRIPTION: The specimen, labeled and designated "Wehr, prostate chips and papillary mass," is received in formalin and consists of irregular-shaped pink-dominguez, rubbery tissue fragments that aggregate measure 4.5 x 3.0 x 0.6 cm. The specimen weight 4 g. Entirely submitted in (A1-A3). JS (under the direct supervision of a pathologist) The Gross Description was prepared using a voice recognition system. The report was reviewed for accuracy; however, sound-alike word errors, addition and/or deletions may occur. If there is any question about this report, please contact Client Services. ADDITIONAL NOTES: Immunohistochemical and/or in situ hybridization studies if performed in this case included appropriate positive controls that reacted as expected. This test was developed and its performance characteristics determined by [email or web address]. It has not been cleared or approved by the U.S. Food and Drug Administration. The FDA has determined that such clearance or approval is not necessary. This test is used for clinical purposes. It should not be regarded as investigational or for research. [email or web address] is certified under the Clinical Laboratory Improvement Amendments of 1988 (CLIA) as qualified to perform high complexity clinical PATIENT NAME: LAVELL MEDINA PATHOLOGY DATE OF : 40 REPORT #: [id number] PHYSICIAN: MICHAELA MI PCP: SAIDA BRADLEY REPORT IS CONFIDENTIAL AND NOT TO BE RELEASED WITHOUT AUTHORIZATION [facility] [address] [facility] [place] [place] [address] Signed laboratory testing. PERFORMING LABORATORY: Technical component was performed by [email or web address], [address] [place] [id number] (CLIA# [id number]). Professional interpretation was performed by [facility], [address] [place] [id number] (CLIA#: [id number]). Diagnostician: George Harvey MD Pathologist Electronically Signed 02/16/2024 Copies: ~ PATIENT NAME: LAVELL MEDINA PATHOLOGY DATE OF : 40 REPORT #: [id number] PHYSICIAN: MICHAELA MI PCP: SAIDA BRADLEY REPORT IS CONFIDENTIAL AND NOT TO BE RELEASED WITHOUT AUTHORIZATION
== END 2024-02-14 11:35 | disposition home or self-care (01) ==
LOC: DS 05:48 → OPS 05:48 → DS 07:30 → OPS 07:30 → DS 10:50 → OPS 11:35
PROVIDERS: ATTEND Urology
PROC: 0VB08ZZ Excision of Prostate, Via Natural or Artificial Opening Endoscopic (ICD-10-PCS; principal; 2024-02-14 07:30)
DX: D29.1 Benign neoplasm of prostate (principal); N31.9 Neuromuscular dysfunction of bladder, unspecified; N28.89 Other specified disorders of kidney and ureter; E11.9 Type 2 diabetes mellitus without complications; I10 Essential (primary) hypertension; K21.9 Gastro-esophageal reflux disease without esophagitis; Z79.899 Other long term (current) drug therapy; Z79.4 Long term (current) use of insulin; Z88.0 Allergy status to penicillin; Z88.2 Allergy status to sulfonamides
CPT/HCPCS: 00914; 93005; 93010; J0690; J1885; J2001; J2405; J2704; J3010; J7121; J9280